=== PATIENT | male | born 1990 | race Two or more races ===

== ENCOUNTER 2017-06-03 09:52 | Emergency (ER) | payer SELFPAY ==
[~2017-06-03] VITALS: Ht 180.3 cm; Wt 163.7 kg
[~2017-06-03 09:52] MED LIST: BACTRIM-DS1 EA ORAL; KEFLEX500 MG ORAL; NKM
[2017-06-03 10:06] VITALS: BP 148/92
[2017-06-03] MEDS ORDERED: KEFLEX500 MG ORAL (10:27)
[2017-06-03] MEDS ORDERED: DOXYCYCLINE MO100 MG ORAL (10:27)
--- NOTE | 2017-06-04 06:56 | Emergency Room Report ---
History of Present Illness General Chief Complaint: Skin Rash/Abscess Source: Patient Present Illness HPI 27-year-old male with bump on left lower abdomen for 2 days. Patient states that he has had an abscess before which required an incision and drainage. Patient states that upon coming to the emergency room he felt a bump cough with some blood and pus come out. No fever or chills Allergies: Coded Allergies: No Known Allergies (Unverified , 04/10/13) Patient History Past Medical History: see triage record Past Surgical History: none Pertinent Family History: none Reviewed Nursing Documentation: PMH: Agreed, PSxH: Agreed Nursing Documentation-PMH Past Medical History: No Stated History Review of Systems All Other Systems: negative except mentioned in HPI Physical Exam Vital Signs Date Time Temp Pulse Resp B/P (MAP) Pulse Ox O2 Delivery O2 Flow Rate FiO2 06/03/17 10:00 98.2 93 19 148/92 96 Room Air Sp02 EP Interpretation: reviewed, normal General Appearance: normal inspection, well appearing, no apparent distress, alert, GCS 15, non-toxic Head: normocephalic, atraumatic Eyes: bilateral eye normal inspection, bilateral eye PERRL, bilateral eye EOMI ENT: normal ENT inspection, normal pharynx, normal voice, moist mucus membranes Neck: normal inspection, full range of motion, supple Respiratory: normal inspection, lungs clear, normal breath sounds, no respiratory distress, no retraction, no wheezing, speaking full sentences, chest symmetrical Cardiovascular #1: normal inspection, regular rate, rhythm, no edema, normal capillary refill Cardiovascular #2: 2+ radial (R), 2+ radial (L) Gastrointestinal: normal inspection, non tender, soft, non-distended, no guarding Genitourinary: no CVA tenderness Musculoskeletal: normal inspection, back normal, normal range of motion, non- tender Neurologic: normal inspection, alert, oriented x3, responsive, motor strength/ tone normal, sensory intact, normal gait, speech normal Psychiatric: normal inspection, judgement/insight normal, memory normal Skin: no rash, warm/dry, well hydrated, normal turgor, other - 2 x 2 centimeter abscess which popped with minimal blood coming out from left lower abdomen, tender to palpation, no surrounding cellulitis Medical Decision Making Diagnostic Impression: Primary Impression: Abscess of skin AND/OR subcutaneous tissue ER Course 27-year-old male p/w bump/swelling to left lower abdomen DDX: Superficial abscess Plan: At this time there is no need for incision and drainage, DC home with ABX ER course: Patient has remained stable in the emergency Disposition: Patient discharged to home with keflex and doxycycline. Patient instructed to follow up in ED or primary care doctors office to wound recheck in 48 hours without fail. Patient cautioned to return to ED if there is rapid spread of rash, high fever or chills. Patient verbalized understanding and agrees with plan. Please note that this Emergency Department Report was dictated using [employer] lead technology software, occasionally this can lead to erroneous entry secondary to interpretation by the dictation equipment. Last Vital Signs Date Time Temp Pulse Resp B/P (MAP) Pulse Ox O2 Delivery O2 Flow Rate FiO2 06/03/17 10:39 91 16 131/76 95 Room Air 06/03/17 10:06 98.2 Disposition: HOME, SELF-CARE Condition: Stable Scripts Doxycycline Monohydrate* (DOXYCYCLINE MONOHYDRATE*) 100 Mg Capsule 100 MG ORAL Q12H for 7 Days, #14 CAP 0 Refills Prov: Shireen Finney M.D. 06/03/17 Cephalexin* (KEFLEX*) 500 Mg Capsule 500 MG ORAL Q6H for 7 Days, #28 CAP 0 Refills Prov: Shireen Finney M.D. 06/03/17 Referrals: NOT CHOSEN IPA/,REFERRING (PCP) Patient Instructions: Abscess Additional Instructions: Please followup with your doctor in 2 days for wound recheck Please come back to the emergency room if you're experiencing rapid spread of rash, fever, chills, nausea or vomiting Shireen Finney M.D. Jun 04, 2017 06:56
== END 2017-06-03 10:39 | disposition home or self-care (01) ==
LOC: EMR 10:20
DX: L02.211 Cutaneous abscess of abdominal wall (principal)
CPT/HCPCS: 99283